=== PATIENT | male | born 1940 ===

== ENCOUNTER → 2023-07-02 09:55 | Outpatient (CLI) | payer MEDICARE, SELFPAY ==
--- NOTE | 2023-07-02 09:58 | DI.NM.S_ITS ---
PROCEDURE: NM ELAYNE PERF SPECT REST & STR Rest and exercise myocardial perfusion SPECT with gated imaging and ejection fraction RADIOPHARMACEUTICAL: 12.5 mCi Tc-99m sestamibi IV at rest and 26.1 mCi Tc-99m sestamibi IV at peak exercise. A [id number]-[id number] was performed. 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 SPECT images were obtained. SPECT myocardial perfusion images were displayed in short axis, horizontal long axis, and vertical long axis views. Gated images were reviewed using [employer] software. COMPARISON: None. CARDIAC STRESS: A standard Braulio treadmill exercise tolerance test was performed by the patient under the supervision of an attending staff. The patient exercised for 4 minutes and 0 seconds; 4.9 METS. Functional aerobic impairment (DORI) is +12%. Hemodynamic data: There is normal blood pressure and heart rate response to exercise stress. Patient achieved 105% of maximum predicted heart rate at peak exercise. Maximum blood pressure 166/80. Symptoms: Patient denied chest pain during exercise. EKG: No diagnostic EKG changes of ischemia; rare PVCs. FINDINGS: Raw data: There is good myocardial labeling by radiotracer. No significant motion artifacts. Pwfu-vu-vmyfo ratio is 0.39 (normal is less than 0.38 for sestamibi tracer, and less than 0.50 for thallium tracer). Left ventricle function: Gated images demonstrate normal left ventricle wall thickening. No segmental wall motion abnormality. No transient ischemic dilation; TID is 1.16 (normal less than 1.3). The left ventricle resting end-diastolic volume is 103 mL. Left ventricle stress ejection fraction is 63%; normal values are above 45%. Myocardial perfusion: There is normal distribution of activity in the left and right ventricular myocardium. No fixed or reversible perfusion defects. IMPRESSION: Low risk study for ischemia. No evidence of exercise-induced ischemia on ECG or SPECT imaging. Normal LV size and function. Normal hemodynamic response to exercise. Reduced exercise capacity. Dictated by: Myriam Rodriguez D.O. on 07/02/2023 at 16:54 Approved by: Myriam Rodriguez D.O. on 07/02/2023 at 16:57
--- NOTE | 2023-07-02 09:59 | DI.ECHO.S_ITS ---
[facility]+ [facility] : : [address] : : [place] : : [id number] : : Phone: [phone] Echocardiogram Report + + :Name: GORDON GRAY Gamino Study Date: 07/02/2023 Height: 63 in : :[facility] ReadingLocation: Weight: 175 lb : : Gender: Male BSA: 1.8 m2 : :: 1940 Age: 83 yrs BP: 183/98 mmHg: :Reason For Study: OLD MYOCARDIAL INFARCTION : :Ordering Physician: SPEEDY, : :MYRIAM Gamino Performed By: Rajan Gallardo : :Referring: MYRIAM RODRIGUEZ : + + Interpretation Summary Left ventricular wall thickness is mildly increased. The ejection fraction is estimated to be 60-65%. Grade I diastolic dysfunction. The left atrium is moderately dilated. The right ventricle grossly appears normal in size with probable normal systolic function. No significant valvular abnormalities. Pulmonary artery pressures cannot be estimated because of the lack of a measurable TR jet velocity but the IVC suggests a CVP of around 3 mmHg. Procedure: A two-dimensional transthoracic echocardiogram with color flow and Doppler was performed. The study quality was technically adequate. There is no prior echocardiogram noted for this patient. The patient was in sinus rhythm with heart rates between 71-78 bpm during the exam. Left Ventricle: Left ventricular wall thickness is mildly increased. The left ventricle is normal in size. The ejection fraction is estimated to be 60- 65%. Regional wall motion abnormalities cannot be excluded due to limited visualization. Diastolic parameters suggest a relaxation abnormality of the left ventricle, consistent with probable normal filling pressures. Right Ventricle: The right ventricle is not well visualized. The right ventricle grossly appears normal in size with probable normal systolic function. Atria: The left atrium is moderately dilated. Right atrial size is normal. The interatrial septum grossly appears intact with no obvious evidence for an atrial septal defect. Mitral Valve: The mitral valve is normal in structure and function. There is no mitral valve stenosis. There is trace mitral regurgitation. Aortic Valve: The aortic valve is trileaflet. The aortic valve is slightly calcified. There is no aortic valve stenosis. No aortic regurgitation is present. Tricuspid Valve: The tricuspid valve is normal in structure and function. There is no tricuspid stenosis. No tricuspid regurgitation. Pulmonary artery pressures cannot be estimated because of the lack of a measurable TR jet velocity but the IVC suggests a CVP of around 3 mmHg. Pulmonic Valve: The pulmonic valve is not well visualized. There is no pulmonic valvular stenosis. There is no pulmonic valvular regurgitation. Great Vessels: The aortic root is normal size. The dimensions of the ascending aorta are normal. The IVC is of normal diameter and collapses greater than 50% with a sniff. This suggests a low right atrial pressure of 3 mm Hg. Pericardium/ Pleura There is no pericardial effusion. There is no pleural effusion. MMode/2D Measurements & Calculations LVIDd: 5.2 cm LVOT diam: 2.2 cm LVIDs: 3.6 cm Ao root diam: 3.0 cm FS: 31.8 % asc Aorta Diam: 3.5 cm IVSd: 1.4 cm Ao Arch Diam (Prox Trans): 2.7 cm LVPWd: 1.3 cm LV major. diameter/BSA (cm/m^2): 2.9 LV sys. diameter/BSA (cm/m^2): 2.0 LA A2 area: 23.6 cm2 RA long axis: 4.1 cm LA A4 area: 27.8 cm2 RA area: 12.3 cm2 LA length (vol): 6.4 cm RA vol: 31.2 ml LA vol: 87.0 ml RA : 17.1 ml/m2 LA vol index: 47.6 ml/m2 IVC diam: 2.0 cm TAPSE: 2.2 cm Doppler Measurements & Calculations Ao V2 max: 168.6 cm/sec LVOT Max Thierno: 93.7 cm/sec Ao V2 mean: 117.3 cm/sec LV V1 max P.5 mmHg Ao max P.4 mmHg LV V1 VTI: 24.1 cm Ao mean P.0 mmHg AUDRA(I,D): 2.4 cm2 Ao V2 VTI: 36.6 cm AUDRA(V,D): 2.1 cm2 sev ratio: 0.66 AUDRA indexed to BSA (cm^2/m^2): 1.3 MV E max thierno: 65.7 cm/sec PA V2 max: 118.0 cm/sec MV A max thierno: 125.2 cm/sec PA V2 mean: 76.9 cm/sec MV E/A: 0.52 PA mean P.8 mmHg Med Peak E' Thierno: 3.6 cm/sec PA pr(Accel): 24.2 mmHg E/E' med: 18.1 Lat Peak E' Thierno: 4.7 cm/sec E/E' lat: 14.0 E/e' average: 16.0 MV dec time: 0.17 sec SV(LVOT): 89.3 ml Reading Physician:05:23 PM
== END ==
LOC: NUCM 09:57
PROVIDERS: PCP Student in an Organized Health Care Education/Training Program; Referring Provider Internal Medicine Cardiovascular Disease; Visit Provider Internal Medicine Cardiovascular Disease
DX: I25.2 Old myocardial infarction (principal)
CPT/HCPCS: 78452; 93017; 93306; A9502